=== PATIENT | female | born 1990 | race Caucasian/White ===

== ENCOUNTER 2017-08-28 08:00 | Outpatient (CLI) | payer OTHER ==
[2017-08-28 08:29] LABS: BASOPHILS % 1.3 (0.0-1.5); EOSINOPHILS % 3.6 % (0.0-6.8); MEAN CORPUSCULAR HEMOGLOBIN 30.7 pg (28.0-34.0); MONOCYTES % 6.1 % (0.0-11.0)
[2017-08-28 09:05] LABS: eGFR (African) > 60; eGFR (Non-African) > 60
== END 2017-08-28 08:02 ==
LOC: LAB 08:00
PROVIDERS: ATTEND Physician Assistant
DX: Z00.00 Encounter for general adult medical examination without abnormal findings (principal)
CPT/HCPCS: 36415; 80053; 84443; 85025